=== PATIENT | female | born 1975 | race Caucasian/White ===

== ENCOUNTER 2019-01-09 14:04 | Outpatient (CLI) | payer OTHER ==
--- NOTE | 2019-01-09 14:23 | RAD ---
EXAM: Chest PA and lateral: HISTORY: Shortness of breath COMPARISON: none FINDINGS: Lung srinivasan are clear. Vascular markings are normal. Heart and mediastinum appear unremarkable. Vascularity is normal. Osseous structures are unremarkable. IMPRESSION: Unremarkable chest
== END 2019-01-09 14:05 | disposition home or self-care (01) ==
LOC: RAD-FRANK 14:04
PROVIDERS: ATTEND Nurse Practitioner Family
DX: R06.02 Shortness of breath (principal)
CPT/HCPCS: 71046